=== PATIENT | female | born 1985 | race Hispanic/Latino ===

== ENCOUNTER 2020-06-26 07:31 | Outpatient (CLI) | payer OTHER ==
[2020-06-26 17:53] LABS: SARS-CoV-2 PCR by NAA Not Detected (NotDetected)
== END 2020-06-26 07:32 | disposition home or self-care (01) ==
LOC: CSHLAB 07:31
PROVIDERS: ATTEND Family Medicine
DX: Z20.822 Contact with and (suspected) exposure to COVID-19 (principal)
CPT/HCPCS: 87635; U0003; U0005

== ENCOUNTER 2022-11-24 12:42 | Outpatient (CLI) | payer OTHER | END 2022-11-24 12:43 | disposition home or self-care (01) | LOC: CSHULT 12:42 | PROVIDERS: ATTEND Family Medicine | DX: R10.2 Pelvic and perineal pain (principal) | CPT/HCPCS: 76856 ==